=== PATIENT | male | born 1945 | race Caucasian/White ===

== ENCOUNTER 2017-03-22 08:41 | Day surgery (SDC) | payer MEDICARE, BC ==
[2017-03-22] MEDS ORDERED: Sodium Chloride 0.9% 1,000 ML IV SCH (10:00)
[2017-03-22] MEDS ORDERED: Midazolam 1 MG/ML 2 ML SDV ONE (10:16)
[2017-03-22] MEDS ORDERED: fentaNYL 100 MCG/2 ML SDV ONE (10:16)
[2017-03-22] MEDS ORDERED: Propofol 200 MG/20 ML SDV ONE (10:16)
[2017-03-22 11:26] VITALS: BP 125/61
--- NOTE | 2017-03-22 11:43 | OR ---
DATE OF PROCEDURE: 03/22/2017 PROCEDURE: Colonoscopy. FINDINGS: 1. Ascending colon polyp, 5 mm, completely removed using cold biopsy forceps. 2. Descending colon polyp, 5 mm, completely removed using cold biopsy forceps. COMPLICATIONS: None. BELT OPERATOR: None. PREOPERATIVE DIAGNOSIS: Screening colonoscopy/history above polyps. POSTOPERATIVE DIAGNOSIS: Screening colonoscopy/history above polyps. RISKS: Risks, benefits, alternatives, and limitations, including, but not limited to infection, bleeding, and perforation were explained to the patient who wished to proceed. PROCEDURE IN DETAIL: The patient was placed in left lateral decubitus position. Digital rectal exam was performed without abnormality. The scope was introduced and advanced atraumatically to the ileocecal valve. The scope was brought back to the ascending, transverse, descending colon, and retroflexed. The aforementioned polyps were identified and completely removed. They were all approximately 5 mm. No evidence of old or new blood. No diverticulosis. No other masses of concern. The patient tolerated the procedure well. Hira De Los Santos MD /[id number]
== END 2017-03-22 11:40 | disposition home or self-care (01) ==
LOC: JP.SDS 08:41
PROVIDERS: ATTEND Surgery
DX: Z12.11 Encounter for screening for malignant neoplasm of colon (principal); I25.10 Atherosclerotic heart disease of native coronary artery without angina pectoris; I10 Essential (primary) hypertension; E11.9 Type 2 diabetes mellitus without complications; E78.5 Hyperlipidemia, unspecified; Z88.8 Allergy status to other drugs, medicaments and biological substances
CPT/HCPCS: 45380; J2250; J2704; J3010; J7040; 88305

== ENCOUNTER 2020-05-17 07:48 | Day surgery (SDC) | payer MEDICARE, BC ==
[~2020-05-17 07:48] MED LIST: Midazolam 1 MG/ML 2 ML SDV ONE; Propofol 200 MG/20 ML SDV ONE; fentaNYL 100 MCG/2 ML SDV ONE
[2020-05-17] MEDS ORDERED: Sodium Chloride 0.9% 1,000 ML IV SCH (08:30)
[2020-05-17 10:23] VITALS: BP 121/66; PULSE 61
--- NOTE | 2020-05-17 12:55 | OR ---
DATE OF PROCEDURE: 05/17/2020 SURGEON: Hira De Los Santos MD PROCEDURE: Colonoscopy. FINDINGS: Descending colon polyp, approximately 1 cm, completely removed using hot snare wire device. PREOPERATIVE DIAGNOSIS: History of colon polyps. POSTOPERATIVE DIAGNOSIS: History of colon polyps. RISKS: Risks, benefits, alternatives, and limitations including, but not limited to, infection, bleeding, and perforation were explained to the patient, who wished to proceed. PROCEDURE IN DETAIL: The patient was placed in the left lateral decubitus position. Digital rectal exam was performed without abnormality. Scope was introduced and advanced atraumatically to the ileocecal valve. A photo was taken. The scope was brought back through the ascending, transverse, descending colon, and retroflexed it. No evidence of old or new blood. The patient had 1 diverticula. In the descending colon, an approximately 8 mm polyp was identified and completely removed using hot snare wire device. No abnormal bleeding was noted after the removal. No abnormalities on retroflexion. The patient tolerated the procedure well. Hira De Los Santos MD /[id number]
== END 2020-05-17 10:27 | disposition home or self-care (01) ==
LOC: JP.SDS 07:48
PROVIDERS: ATTEND Surgery
DX: Z12.11 Encounter for screening for malignant neoplasm of colon (principal); K63.5 Polyp of colon; I10 Essential (primary) hypertension; K57.30 Diverticulosis of large intestine without perforation or abscess without bleeding; Z86.010 Personal history of colon polyps
CPT/HCPCS: 45385; J2250; J2704; J3010; J7030; 88305

== ENCOUNTER 2022-04-10 08:45 | Inpatient (IN) | payer MEDICARE, BC ==
[~2022-04-10 08:45] MED LIST changes: +Bupivacaine 0.5% 50 ML MDV ONE; -Midazolam 1 MG/ML 2 ML SDV ONE; -Propofol 200 MG/20 ML SDV ONE; -fentaNYL 100 MCG/2 ML SDV ONE
[2022-04-10] MEDS: Nozin Nasal Sanitizer NASBOTH SCH ×2 (09:34→21:41)
[2022-04-10] MEDS ORDERED: Lactated Ringers 1,000 ML IV SCH (10:00)
[2022-04-10] MEDS ORDERED: ceFAZolin 2 GM in Premix Bag 1 BAG IV ONE (10:15)
[2022-04-10] MEDS ORDERED: Tranexamic Acid 1,000 MG in Sodium Chloride 0.9% 50 ML IV ONE (10:45)
[2022-04-10] MEDS ORDERED: Propofol 200 MG/20 ML SDV ONE ×2 (12:31→14:38)
[2022-04-10] MEDS ORDERED: Midazolam 1 MG/ML 2 ML SDV ONE (12:31)
[2022-04-10] MEDS ORDERED: fentaNYL 100 MCG/2 ML SDV ONE (12:31)
[2022-04-10] MEDS ORDERED: Lactated Ringers 1,000 ML ONE (14:01)
[2022-04-10] MEDS ORDERED: Ondansetron 4 MG/2 ML SDV IVPUSH PRN (15:15)
[2022-04-10] MEDS ORDERED: Nitroglycerin 0.4 MG Tab.SL SL PRN (15:20)
[2022-04-10] MEDS ORDERED: HYDROmorphone 0.5 MG/0.5 ML Syringe IVPUSH PRN (15:20)
[2022-04-10] MEDS ORDERED: EPINEPHrine 1 MG/ML SDV IM PRN (15:30)
[2022-04-10] MEDS: Acetaminophen 325 MG Tab PO SCH ×2 (16:16→21:47)
[2022-04-10] MEDS: metFORMIN 500 MG Tab PO SCH (17:48)
[2022-04-10] MEDS: Sodium Chloride 0.9% 1,000 ML IV SCH (18:46)
[2022-04-10] MEDS: oxyCODONE 5 MG Tab PO PRN ×2 (19:11→23:19)
[2022-04-10] MEDS ORDERED: Nozin Nasal Sanitizer NASBOTH SCH (21:00)
[2022-04-10] MEDS: Docusate Sodium 100 MG Cap PO SCH (21:41)
[2022-04-10] MEDS: ceFAZolin 1 GM in Sodium Chloride 0.9% 50 ML IV SCH (21:41)
[2022-04-10] MEDS: traMADol 50 MG Tab PO PRN (21:56)
[2022-04-11] MEDS: Sodium Chloride 0.9% 1,000 ML IV SCH (02:18)
[2022-04-11] MEDS: Acetaminophen 325 MG Tab PO SCH ×3 (04:26→17:12)
[2022-04-11] MEDS: ceFAZolin 1 GM in Sodium Chloride 0.9% 50 ML IV SCH ×2 (04:27→12:48)
[2022-04-11] MEDS: traMADol 50 MG Tab PO PRN (04:33)
[2022-04-11 07:21] VITALS: BP 120/59
[2022-04-11] MEDS ORDERED: metFORMIN 500 MG Tab PO SCH (08:00)
[2022-04-11] MEDS: Nozin Nasal Sanitizer NASBOTH SCH (08:22)
[2022-04-11] MEDS: Docusate Sodium 100 MG Cap PO SCH (08:23)
[2022-04-11 08:27] VITALS: PULSE 72
[2022-04-11] MEDS ORDERED: MAGNESIUM PO SCH (09:00)
[2022-04-11] MEDS ORDERED: Clopidogrel 75 MG Tab PO SCH (09:00)
[2022-04-11] MEDS ORDERED: Ascorbic Acid 500 MG Tab PO SCH (09:00)
[2022-04-11] MEDS ORDERED: CA CARB PO SCH (09:00)
[2022-04-11] MEDS ORDERED: Metoprolol Succinate 50 MG Tab.ER PO SCH (09:00)
[2022-04-11] MEDS ORDERED: Celecoxib 200 MG Cap PO SCH (09:00)
[2022-04-11] MEDS ORDERED: Multivitamins with Iron/Calcium/Folic Acid/Minerals Tab PO SCH (09:00)
[2022-04-11] MEDS ORDERED: Lisinopril 20 MG Tab PO SCH (09:00)
[2022-04-11] MEDS ORDERED: CHROMIUM PICOLINATE 200 MCG PO SCH (09:00)
[2022-04-11] MEDS ORDERED: Glimepiride 2 MG Tab PO SCH (09:00)
[2022-04-11] MEDS ORDERED: Pravastatin 20 MG Tab PO SCH (09:00)
[2022-04-11] MEDS: metFORMIN 500 MG Tab PO SCH (17:12)
== END 2022-04-11 18:00 | disposition home or self-care (01) | DRG 470 ==
LOC: JP.SDS 08:45 → JP.ICU 15:15 → JP.SDS 04-11 12:50 → JP.ICU 04-11 12:50
PROVIDERS: ADMIT Specialist; ATTEND Specialist
PROC: 0SRB03Z Replacement of Left Hip Joint with Ceramic Synthetic Substitute, Open Approach (ICD-10-PCS; principal; 2022-04-10)
DX: M16.12 Unilateral primary osteoarthritis, left hip (principal); I10 Essential (primary) hypertension; I25.10 Atherosclerotic heart disease of native coronary artery without angina pectoris; E11.9 Type 2 diabetes mellitus without complications; E78.5 Hyperlipidemia, unspecified; R41.0 Disorientation, unspecified; I25.2 Old myocardial infarction; Z79.82 Long term (current) use of aspirin; Z79.899 Other long term (current) drug therapy; Z88.8 Allergy status to other drugs, medicaments and biological substances; Z95.5 Presence of coronary angioplasty implant and graft
CPT/HCPCS: 36415; 51798; 72170; 72170-26; 82947; 85027; 97110-GP; 97116-GP; 97162-GP; 97535-GP; A9270-GY; C1713; C1776; J0690; J2250; J2704; J3010; J3490; J7030; J7120

== ENCOUNTER 2023-05-18 07:50 | Day surgery (SDC) | payer MEDICARE, BC ==
[2023-05-18] MEDS ORDERED: fentaNYL 100 MCG/2 ML SDV ONE (08:30)
[2023-05-18] MEDS ORDERED: Sodium Chloride 0.9% 1,000 ML IV SCH (08:30)
[2023-05-18] MEDS ORDERED: Propofol 200 MG/20 ML SDV ONE (08:30)
[2023-05-18 09:53] VITALS: BP 148/55; PULSE 62
== END 2023-05-18 10:04 | disposition home or self-care (01) ==
LOC: JP.SDS 07:50
PROVIDERS: ATTEND Surgery
DX: Z12.11 Encounter for screening for malignant neoplasm of colon (principal); I25.10 Atherosclerotic heart disease of native coronary artery without angina pectoris; I10 Essential (primary) hypertension; K57.30 Diverticulosis of large intestine without perforation or abscess without bleeding
CPT/HCPCS: G0121; J2704; J3010; J7030

== ENCOUNTER 2025-02-28 19:42 | Inpatient (IN) | payer MEDICARE, BC ==
[2025-02-28] MEDS: 50% Dextrose in Water 50 ML Syringe IVPUSH ONE (19:54)
[2025-02-28 20:12] LABS: BASOPHILS ABSOLUTE AUTO 0.03 K/uL (0.00-0.10); BASOPHILS PERCENT AUTO 0.4 % (0.1-1.3); EOSINOPHILS ABSOLUTE AUTO 0.12 K/uL (0.00-0.40); EOSINOPHILS PERCENT AUTO 1.6 % (0.0-5.4); HEMATOCRIT 38.6 % (38.4-49.7); HEMOGLOBIN 13.4 g/dL (12.9-16.9); IMMATURE GRAN ABSOLUTE AUTO 0.03 K/uL (0.00-0.23); IMMATURE GRAN PERCENT AUTO 0.4 % (0.0-0.7); LYMPHOCYTES ABSOLUTE AUTO 2.27 K/uL (0.8-3.3); LYMPHOCYTES PERCENT AUTO 30.8 % (11.4-47.7); MEAN CORPUSCULAR HGB CONC 34.7 g/dL (31.6-35.5); MONOCYTES ABSOLUTE AUTO 0.67 K/uL (0.20-0.90); MONOCYTES PERCENT AUTO 9.1 % (3.3-12.6); NEUTROPHILS ABSOLUTE AUTO 4.26 K/uL (1.0-7.6); NEUTROPHILS PERCENT AUTO 57.7 % (40.0-78.1); PLATELET COUNT,PLT 136 K/uL (130-375); RED BLOOD CELL COUNT 3.94 M/uL (4.14-5.76); WHITE BLOOD CELL COUNT,WBC 7.4 K/uL (3.2-11.0)
[2025-02-28 20:33] LABS: APPEARANCE,URINE CLEAR (CLEAR); BILIRUBIN,URINE NEGATIVE (NEGATIVE); COLOR,URINE YELLOW (YELLOW); GLUCOSE,URINE 100 mg/dL (NEGATIVE); KETONES,URINE TRACE mg/dL (NEGATIVE); LEUKOCYTE ESTERASE,URINE NEGATIVE (NEGATIVE); NITRITE,URINE NEGATIVE (NEGATIVE); OCCULT BLOOD,URINE NEGATIVE (NEGATIVE); PROTEIN,URINE 100 mg/dL (NEGATIVE)
[2025-02-28 20:40] LABS: AMORPHOUS SEDIMENT,URINE NOT SEEN; BACTERIA,URINE FEW; EPITHELIAL CELLS,URINE FEW; MUCUS,URINE MODERATE; RBC,URINE 0-5 (0-5); WBC,URINE 0-5 (0-5)
[2025-02-28 20:44] LABS: A/G RATIO 1.2 (1.2-2.2); ALANINE AMINOTRANSFERASE,ALT 18 U/L (12-78); ALBUMIN 3.5 g/dL (3.4-5.0); ALKALINE PHOSPHATASE 47 U/L (46-116); ASPARTATE AMNIOTRANSFERASE,AST 17 U/L (15-37); BILIRUBIN TOTAL 0.3 mg/dL (0.2-1.0); BLOOD UREA NITROGEN,BUN 16 mg/dL (7-18); CALCIUM 8.8 mg/dL (8.5-10.1); CARBON DIOXIDE,CO2 26 mmol/L (21-32); CHLORIDE,CL 100 mmol/L (100-108); CREATININE 1.1 mg/dL (0.8-1.3); EST CRCL DRUG DOSING (CG) 52.68 mL/min; ESTIMATED GFR 68 mL/min (>60); GLUCOSE RANDOM 162 mg/dL (74-106); PROTEIN TOTAL,TP 6.4 g/dL (6.4-8.2); SODIUM,NA 137 mmol/L (140-148)
[2025-02-28] MEDS: Dextrose 10% in Water 500 ML IV SCH (21:00)
[2025-03-01] MEDS ORDERED: Ondansetron 4 MG/2 ML SDV IV PRN (01:21)
[2025-03-01] MEDS ORDERED: Ondansetron 4 MG Tab.DIS PO PRN (01:21)
[2025-03-01] MEDS ORDERED: Acetaminophen 325 MG Tab PO PRN (01:21)
[2025-03-01] MEDS: Dextrose 5%-0.9% NaCl 1,000 ML IV SCH (01:25)
[2025-03-01] MEDS: Melatonin 3 MG Tab PO PRN (03:22)
[2025-03-01 06:04] LABS: HEMATOCRIT 34.5 % (38.4-49.7); HEMOGLOBIN 12.3 g/dL (12.9-16.9); MEAN CORPUSCULAR HEMOGLOBIN 34.7 pg (31.6-35.5); MEAN CORPUSCULAR HGB CONC 35.7 g/dL (31.6-35.5); MEAN CORPUSCULAR VOLUME 97.5 fL (81.4-99.0); RED BLOOD CELL COUNT 3.54 M/uL (4.14-5.76); WHITE BLOOD CELL COUNT,WBC 6.9 K/uL (3.2-11.0)
[2025-03-01 06:22] LABS: ANION GAP 12.2 mmol/L (5.0-14.0); CALCIUM 8.7 mg/dL (8.5-10.1); EST CRCL DRUG DOSING (CG) 58.16 mL/min; POTASSIUM,K 4.2 mmol/L (3.6-5.2)
[2025-03-01] MEDS: Aspirin 81 MG Tab.EC PO SCH (09:07)
[2025-03-01] MEDS: Lisinopril 20 MG Tab PO SCH (09:07)
[2025-03-01] MEDS ORDERED: Dextrose 5%-0.9% NaCl 1,000 ML IV SCH (09:30)
[2025-03-01] MEDS: Insulin Lispro 100 Unit/ML 3 ML KwikPen SUBCUT SCH (16:33)
[2025-03-01] MEDS: metFORMIN 500 MG Tab PO SCH (17:11)
[2025-03-01] MEDS: Pravastatin 20 MG Tab PO SCH (17:11)
[2025-03-02] MEDS: metFORMIN 500 MG Tab PO SCH (07:36)
[2025-03-02] MEDS: Glimepiride 2 MG Tab PO SCH (07:36)
[2025-03-02] MEDS: Clopidogrel 75 MG Tab PO SCH (09:18)
[2025-03-03 05:54] LABS: BASOPHILS ABSOLUTE AUTO 0.03 K/uL (0.00-0.10); BASOPHILS PERCENT AUTO 0.4 % (0.1-1.3); EOSINOPHILS ABSOLUTE AUTO 0.22 K/uL (0.00-0.40); EOSINOPHILS PERCENT AUTO 2.9 % (0.0-5.4); HEMATOCRIT 39.2 % (38.4-49.7); HEMOGLOBIN 13.6 g/dL (12.9-16.9); IMMATURE GRAN PERCENT AUTO 0.3 % (0.0-0.7); LYMPHOCYTES ABSOLUTE AUTO 2.25 K/uL (0.8-3.3); LYMPHOCYTES PERCENT AUTO 29.8 % (11.4-47.7); MEAN CORPUSCULAR HEMOGLOBIN 33.7 pg (31.6-35.5); MEAN CORPUSCULAR HGB CONC 34.7 g/dL (31.6-35.5); MEAN CORPUSCULAR VOLUME 97.3 fL (81.4-99.0); MONOCYTES ABSOLUTE AUTO 0.75 K/uL (0.20-0.90); MONOCYTES PERCENT AUTO 9.9 % (3.3-12.6); NEUTROPHILS ABSOLUTE AUTO 4.27 K/uL (1.0-7.6); NEUTROPHILS PERCENT AUTO 56.7 % (40.0-78.1); PLATELET COUNT,PLT 162 K/uL (130-375); RED BLOOD CELL COUNT 4.03 M/uL (4.14-5.76); WHITE BLOOD CELL COUNT,WBC 7.5 K/uL (3.2-11.0)
[2025-03-03 05:57] LABS: IMMATURE GRAN ABSOLUTE AUTO 0.02 K/uL (0.00-0.23)
[2025-03-03 06:17] LABS: A/G RATIO 1.2 (1.2-2.2); ALANINE AMINOTRANSFERASE,ALT 15 U/L (12-78); ALBUMIN 3.5 g/dL (3.4-5.0); ALKALINE PHOSPHATASE 47 U/L (46-116); ASPARTATE AMNIOTRANSFERASE,AST 15 U/L (15-37); BILIRUBIN TOTAL 0.7 mg/dL (0.2-1.0); BLOOD UREA NITROGEN,BUN 14 mg/dL (7-18); CALCIUM 9.2 mg/dL (8.5-10.1); CARBON DIOXIDE,CO2 27 mmol/L (21-32); CHLORIDE,CL 100 mmol/L (100-108); CREATININE 0.9 mg/dL (0.8-1.3); EST CRCL DRUG DOSING (CG) 64.63 mL/min; ESTIMATED GFR 87 mL/min (>60); GLUCOSE RANDOM 168 mg/dL (74-106); POTASSIUM,K 4.3 mmol/L (3.6-5.2); PROTEIN TOTAL,TP 6.5 g/dL (6.4-8.2); SODIUM,NA 137 mmol/L (140-148)
[2025-03-03 06:22] LABS: ANION GAP 14.3 mmol/L (5.0-14.0)
[2025-03-03] MEDS: Sennosides/Docusate Sodium 50-8.6 MG Tab PO PRN (07:51)
[2025-03-03 11:18] VITALS: BP 148/70; PULSE 77
== END 2025-03-03 11:45 | disposition home or self-care (01) | DRG 918 ==
LOC: JP.ED 19:42 → JP.MS 03-01 00:48 → OBSVTOIN 03-02 13:15
PROVIDERS: ADMIT Registered Nurse; ATTEND Hospitalist
DX: T38.3X1A Poisoning by insulin and oral hypoglycemic [antidiabetic] drugs, accidental (unintentional), initial encounter (principal); E11.649 Type 2 diabetes mellitus with hypoglycemia without coma; H54.7 Unspecified visual loss; I25.10 Atherosclerotic heart disease of native coronary artery without angina pectoris; E78.00 Pure hypercholesterolemia, unspecified; Z91.048 Other nonmedicinal substance allergy status; I11.9 Hypertensive heart disease without heart failure; Z68.37 Body mass index [BMI] 37.0-37.9, adult; M54.9 Dorsalgia, unspecified; G89.29 Other chronic pain; M19.90 Unspecified osteoarthritis, unspecified site; E66.9 Obesity, unspecified; E61.1 Iron deficiency; R00.1 Bradycardia, unspecified; G30.9 Alzheimer's disease, unspecified; F02.80 Dementia in other diseases classified elsewhere, unspecified severity, without behavioral disturbance, psychotic disturbance, mood disturbance, and anxiety; Z88.8 Allergy status to other drugs, medicaments and biological substances; Z79.899 Other long term (current) drug therapy; Z79.82 Long term (current) use of aspirin; Z98.890 Other specified postprocedural states; Z96.649 Presence of unspecified artificial hip joint; Z87.891 Personal history of nicotine dependence; Z79.84 Long term (current) use of oral hypoglycemic drugs; Z85.828 Personal history of other malignant neoplasm of skin; Z98.49 Cataract extraction status, unspecified eye
CPT/HCPCS: 36415; 70450; 80048; 80053; 81001; 82947; 84484; 85025; 85027; 93005; 93010; 96361; 96374; 97161-GP; 97167-GO; 99223; 99233; 99239; 99285; 99285-25; A9270-GY; G0378; J1815

== ENCOUNTER 2025-11-13 19:14 | Emergency (ER) | payer MEDICARE, BC ==
[~2025-11-13 19:14] MED LIST changes: +50% Dextrose in Water 50 ML Syringe ONE; -Bupivacaine 0.5% 50 ML MDV ONE
[2025-11-13] MEDS: 50% Dextrose in Water 50 ML Syringe IVPUSH STA (19:20)
[2025-11-13 19:33] VITALS: PULSE 73
[2025-11-13 19:36] LABS: BASOPHILS PERCENT AUTO 0.3 % (0.1-1.3); EOSINOPHILS ABSOLUTE AUTO 0.14 K/uL (0.00-0.40); EOSINOPHILS PERCENT AUTO 2.1 % (0.0-5.4); IMMATURE GRAN PERCENT AUTO 0.3 % (0.0-0.7); LYMPHOCYTES ABSOLUTE AUTO 2.42 K/uL (0.8-3.3); LYMPHOCYTES PERCENT AUTO 35.9 % (11.4-47.7); MONOCYTES ABSOLUTE AUTO 0.68 K/uL (0.20-0.90); MONOCYTES PERCENT AUTO 10.1 % (3.3-12.6); NEUTROPHILS ABSOLUTE AUTO 3.46 K/uL (1.0-7.6); NEUTROPHILS PERCENT AUTO 51.3 % (40.0-78.1); PLATELET COUNT,PLT 153 K/uL (130-375); RED BLOOD CELL COUNT 3.70 M/uL (4.14-5.76); WHITE BLOOD CELL COUNT,WBC 6.7 K/uL (3.2-11.0)
[2025-11-13 19:46] LABS: BASOPHILS ABSOLUTE AUTO 0.02 K/uL (0.00-0.10); IMMATURE GRAN ABSOLUTE AUTO 0.02 K/uL (0.00-0.23)
[2025-11-13 20:10] LABS: A/G RATIO 1.2 (1.2-2.2); ALANINE AMINOTRANSFERASE,ALT 20 U/L (12-78); ASPARTATE AMNIOTRANSFERASE,AST 19 U/L (15-37); BILIRUBIN TOTAL 0.5 mg/dL (0.2-1.0); BLOOD UREA NITROGEN,BUN 26 mg/dL (7-18); CARBON DIOXIDE,CO2 25 mmol/L (21-32); CHLORIDE,CL 102 mmol/L (100-108); CREATININE 1.3 mg/dL (0.8-1.3); EST CRCL DRUG DOSING (CG) 44.58 mL/min; ESTIMATED GFR 56 mL/min (>60); GLUCOSE RANDOM 147 mg/dL (74-106); POTASSIUM,K 4.6 mmol/L (3.6-5.2); PROTEIN TOTAL,TP 6.5 g/dL (6.4-8.2); SODIUM,NA 136 mmol/L (140-148)
[2025-11-13 20:51] VITALS: BP 158/70
== END 2025-11-13 20:45 | disposition home or self-care (01) ==
LOC: JP.ED 19:14
DX: E11.649 Type 2 diabetes mellitus with hypoglycemia without coma (principal); I25.10 Atherosclerotic heart disease of native coronary artery without angina pectoris; E78.00 Pure hypercholesterolemia, unspecified; I10 Essential (primary) hypertension; E66.9 Obesity, unspecified; Z79.899 Other long term (current) drug therapy; Z79.84 Long term (current) use of oral hypoglycemic drugs; Z79.82 Long term (current) use of aspirin; Z88.8 Allergy status to other drugs, medicaments and biological substances; Z91.048 Other nonmedicinal substance allergy status; Z68.35 Body mass index [BMI] 35.0-35.9, adult
CPT/HCPCS: 36415; 80053; 82947; 83605; 85025; 96374; 99284; 99285-25